=== PATIENT | male | born 1950 | race Caucasian/White ===

== ENCOUNTER 2025-08-15 06:24 | Day surgery (SDC) | payer MEDICARE, OTHER, SELFPAY | END 2025-08-15 12:43 | disposition home or self-care (01) | LOC: GI 06:24 | PROVIDERS: ATTENDING PHYSICIAN Internal Medicine; FAMILY PHYSICIAN Family Medicine | DX: Z12.11 Encounter for screening for malignant neoplasm of colon (principal); K57.30 Diverticulosis of large intestine without perforation or abscess without bleeding; K64.8 Other hemorrhoids; K55.20 Angiodysplasia of colon without hemorrhage; Z86.0100 Personal history of colon polyps, unspecified | CPT/HCPCS: G0105 ==